=== PATIENT | male | born 1990 | race Asian ===

== ENCOUNTER 2017-10-22 03:28 | Emergency (ER) | payer SELFPAY ==
[2017-10-22 05:10] LABS: CALCIUM 8.5 mg/dL (8.5-10.1); CARBON DIOXIDE 24.3 mmol/L (21-32); CHLORIDE SERUM 104 mmol/L (98-107); CREATININE SERUM 1.4 mg/dL (0.7-1.3); GFR1 > 60 mL/min; GLUCOSE SERUM 109 mg/dL (74-106); POTASSIUM SERUM 3.6 mmol/L (3.5-5.1); SODIUM SERUM 140 mmol/L (136-145)
[2017-10-22 05:15] LABS: ALBUMIN 3.8 g/dL (3.4-5.0); ALKALINE PHOSPHATASE 57 U/L (46-116); ALT/SGPT 141 U/L (16-63); AST/SGOT 61 U/L (15-37); BILIRUBIN TOTAL 0.41 mg/dL (0.20-1.00); TOTAL PROTEIN, SERUM 6.9 g/dL (6.4-8.2)
[2017-10-22 05:21] LABS: BASOPHIL % 0.6 % (0-2); PLATELET COUNT 166 x10^3mcL (130-400); RED CELL DISTRIBUTION WIDTH 13.8 % (11.5-14.5)
[2017-10-22 06:48] LABS: AMPHETAMINE QUAL UR NONE DETECTED (NEG <=1000)
[2017-10-22 11:09] VITALS: BP 106/66
== END 2017-10-22 11:09 | disposition home or self-care (01) ==
LOC: ED 03:28
PROVIDERS: Emergency Medicine
DX: R40.4 Transient alteration of awareness (principal); R00.0 Tachycardia, unspecified; R06.02 Shortness of breath
CPT/HCPCS: 85378; 87804; G0480; J7030; J7613; Q0092